=== PATIENT | male | born 1965 | race Caucasian/White ===

== ENCOUNTER 2019-05-10 11:52 | Emergency (ER) | payer MEDICAID ==
[~2019-05-10] VITALS: Ht 175.3 cm; Wt 70.3 kg
[2019-05-10 13:49] VITALS: BP 115/79
--- NOTE | 2019-05-10 13:49 | NUR ---
Patient discharged to home in stable conditon. Written and verbal after care instructions given. Patient verbalizes understanding of instructions. Patient ambulated with stable gait.
== END 2019-05-10 13:50 | disposition home or self-care (01) ==
LOC: ER 11:52
DX: J02.9 Acute pharyngitis, unspecified (principal)
CPT/HCPCS: 36415; 86403; 87070; A4663

== ENCOUNTER 2021-07-09 13:07 | Emergency (ER) | payer MEDICAID ==
[~2021-07-09] VITALS: Ht 175.3 cm; Wt 70.3 kg
--- NOTE | 2021-07-09 13:26 | NUR ---
PT IS IN ROOM 2A. DR HOYT EVALUATED THE PT.
[2021-07-09] MEDS ORDERED: LIDOCAINE HCL 1% 20 ML VIAL TP ONE (13:30)
[2021-07-09] MEDS ORDERED: LIDOCAINE HCL 1% 20 ML VIAL ONE (13:31)
[2021-07-09] MEDS ORDERED: SULFAMETH/TRIMETH 800/160 MG TABLET PO ONE (14:00)
[2021-07-09] MEDS ORDERED: NEOMY/BACITRA/POLYMYXIN B OINT UD PACKET TP ONE ×2 (14:00→14:05)
[2021-07-09] MEDS ORDERED: IBUP-1955 PO (14:02)
[2021-07-09] MEDS ORDERED: SULF1TAB48 PO (14:02)
[2021-07-09] MEDS ORDERED: SULFAMETH/TRIMETH 800/160 MG TABLET ONE (14:05)
[2021-07-09 14:42] VITALS: BP 142/77
--- NOTE | 2021-07-09 14:42 | NUR ---
PT WAS D/C'd TO HOME. D/C INSTRUCTIONS GIVEN TO THE PT BY DR HOYT.
== END 2021-07-09 14:43 | disposition home or self-care (01) ==
LOC: ER 13:07
DX: L02.416 Cutaneous abscess of left lower limb (principal); L03.116 Cellulitis of left lower limb; I10 Essential (primary) hypertension
CPT/HCPCS: 10060; 76882; 99284; J3490; A4663

== ENCOUNTER 2023-05-14 01:25 | Emergency (ER) | payer MEDICAID, OTHER ==
[~2023-05-14] VITALS: Ht 172.7 cm; Wt 72.6 kg
[~2023-05-14 01:25] MED LIST: IBUP-1955 PO; SULF1TAB48 PO
[2023-05-14 01:29] VITALS: O2SAT 99
[2023-05-14] MEDS: ONDANSETRON ODT 4 MG TAB.RAPDIS SL ONE (02:10)
[2023-05-14] MEDS: HYDROCODONE/APAP 5-325MG TABLET PO ONE (02:10)
[2023-05-14] MEDS ORDERED: ONDANSETRON ODT 4 MG TAB.RAPDIS ONE (02:10)
[2023-05-14] MEDS ORDERED: HYDROCODONE/APAP 5-325MG TABLET ONE (02:11)
== END 2023-05-14 04:00 | disposition left against medical advice (07) ==
LOC: ER 01:28
DX: S00.81XA Abrasion of other part of head, initial encounter (principal); F07.81 Postconcussional syndrome; F17.200 Nicotine dependence, unspecified, uncomplicated; Z79.899 Other long term (current) drug therapy; W22.8XXA Striking against or struck by other objects, initial encounter; Y93.89 Activity, other specified; Y92.89 Other specified places as the place of occurrence of the external cause; Y99.8 Other external cause status
CPT/HCPCS: 70450; 72125; A4606; A4663; Q0162